=== PATIENT | female | born 2000 | race Caucasian/White ===

== ENCOUNTER 2019-03-14 06:26 | Emergency (ER) | payer OTHER ==
[2019-03-14 06:43] VITALS: O2SAT 99
[2019-03-14] MEDS ORDERED: SODIUM CHLORIDE 0.9% 1000ML 1,000 ML IV ONE (06:46)
[2019-03-14] MEDS ORDERED: ALUMINUM/MAGNESIUM 30 ML SUS PO ONE (06:46)
[2019-03-14] MEDS ORDERED: PANTOPRAZOLE SODIUM 40 MG/10 ML PDS IV ONE (06:46)
[2019-03-14] MEDS ORDERED: ONDANSETRON HCL 4 MG/2 ML SOL IV PRN (06:47)
[2019-03-14] MEDS ORDERED: ALUMINUM/MAGNESIUM 30 ML SUS ONE (07:16)
[2019-03-14] MEDS ORDERED: PANTOPRAZOLE SODIUM 40 MG/10 ML PDS ONE (07:18)
[2019-03-14] MEDS ORDERED: ONDANSETRON HCL 4 MG/2 ML SOL ONE (07:18)
[2019-03-14 07:26] LABS: BASOPHILS % (AUTO) 1 % (0-3); EOSINOPHILS % (AUTO) 1 % (0-9); HEMATOCRIT 42 % (35-47); HEMOGLOBIN 14.2 gm/dl (12.0-15.5); LYMPHOCYTES % (AUTO) 34.8 % (10-50); MEAN CORPUSCULAR HEMOGLOBIN 31.4 pg (27.0-32.0); MEAN CORPUSCULAR HGB CONC 33.9 gm/dl (32.0-36.0); MEAN CORPUSCULAR VOLUME 93 fL (81-99); MONOCYTES % (AUTO) 6.8 % (0-12); NEUTROPHILS % (AUTO) 56.2 % (37-80)
[2019-03-14 07:30] LABS: BILIRUBIN,TOTAL 0.7 mg/dl (0.2-1.0); CALCIUM 8.5 mg/dl (8.5-10.1); CARBON DIOXIDE 26.6 mEq/L (21-32); CREATININE 0.91 mg/dl (0.60-1.00); TOTAL PROTEIN 7.1 gm/dl (6.4-8.2)
[2019-03-14 07:33] LABS: APPEARANCE,URINE Clear; BILIRUBIN,URINE NEGATIVE (NEGATIVE); COLOR,URINE Yellow; GLUCOSE, URINE (UA) NEGATIVE (NEGATIVE); KETONES,URINE NEGATIVE (NEGATIVE); LEUKOCYTE ESTERASE ,URINE NEGATIVE (NEGATIVE); NITRATE,URINE NEGATIVE (NEGATIVE); OCCULT BLOOD,URINE NEGATIVE (NEG-TRACE); PH,URINE 6.5; UROBILINOGEN,URINE 0.2 (0.2-1.0 EU)
[2019-03-14 08:03] LABS: BACTERIA TRACE (< 1+); CRYSTALS NEGATIVE (0-3 AVE/HPF); EPITHELIAL CELLS 0-2 (SQUAMOUS); RBC,URINE NEG (0-3AV/HPF); WBC,URINE 0-1 (0-5AV/HPF)
[2019-03-14 08:20] VITALS: RESP 18
[2019-03-14 08:21] VITALS: BP 122/74; PULSE 82; TEMP 97.9
== END 2019-03-14 08:18 | disposition home or self-care (01) | DRG 392 ==
LOC: ED 06:26
DX: K29.70 Gastritis, unspecified, without bleeding (principal); K21.9 Gastro-esophageal reflux disease without esophagitis; R10.13 Epigastric pain
CPT/HCPCS: 80053; 81001; 83690; 84703; 85025; 96365; 96374; 96375; 99282; 99284; J2405; A9270-GY